=== PATIENT | male | born 1950 ===

== ENCOUNTER 2019-08-12 09:25 | Day surgery (SDC) | payer MEDICARE, BC ==
[2019-08-12] MEDS ORDERED: LORazepam 1 MG tablet PO ONE (09:55)
[2019-08-12] MEDS ORDERED: LIDOcaine 1%/PF 5ML 10 MG/ML VIAL ONE (11:15)
== END 2019-08-12 11:35 | disposition home or self-care (01) ==
LOC: WOUND CARE 09:25
PROVIDERS: ATTEND Surgery
DX: C44.619 Basal cell carcinoma of skin of left upper limb, including shoulder (principal); E78.5 Hyperlipidemia, unspecified
CPT/HCPCS: 11602; A4663